=== PATIENT | female | born 1955 ===

== ENCOUNTER 2017-03-17 08:53 | Emergency (ER) | payer BC, OTHER ==
[2017-03-17] MEDS ORDERED: Lidocaine 5% Patch TD STA (09:21)
--- NOTE | 2017-03-17 09:46 | ED PDOC ---
HPI: Back Time Seen by Provider: 03/17/17 09:08 Chief Complaint (Nursing): Back Pain Chief Complaint (Provider): Back and Right Leg Pain History Per: Patient History/Exam Limitations: no limitations Onset/Duration Of Symptoms: Days (x 1 year) Current Symptoms Are (Timing): Still Present Additional Complaint(s): Stephanie is a 61 y/o female who presents to the ED complaining of lower back pain that radiates to the right leg, ongoing for the past year. Denies any associated numbness, tingles, urinary incontinence, dysuria, abdominal pain, nausea, vomiting, diarrhea, or headache. She denies suffering a new fall or injury. Taking Ibuprofen without relief of pain. No constipation. Ambulated with the pain. PMD: Unknown Past Medical History Reviewed: Historical Data, Nursing Documentation, Vital Signs - Medical History PMH: Back Problems, Chronic Pain (back) - Surgical History Surgical History: No Surg Hx - Family History Family History: States: Unknown Family Hx - Social History Current smoker - smoking cessation education provided: No Alcohol: None Drugs: Denies - Home Medications Home Medications: Ambulatory Orders Medication Instructions Recorded Ibuprofen [Motrin] 600 mg PO TID 7 Days 03/17/17 Lidocaine 5% [Lidoderm] 1 ea TD DAILY PRN 5 Days 03/17/17 - Allergies Allergies/Adverse Reactions: Allergies Allergy/AdvReac Type Severity Reaction Status Date / Time No Known Allergies Allergy Verified 03/17/17 09:07 Review of Systems Constitutional: Negative for: Other (fall or injury) Cardiovascular: Negative for: Chest Pain Respiratory: Negative for: Shortness of Breath Gastrointestinal: Negative for: Nausea, Vomiting, Abdominal Pain, Diarrhea Genitourinary Female: Negative for: Dysuria, Frequency, Incontinence Musculoskeletal: Positive for: Back Pain (lower) Skin: Negative for: Rash Neurological: Negative for: Weakness, Numbness, Headache Physical Exam - Reviewed Nursing Documentation Reviewed: Yes Vital Signs Reviewed: Yes - Physical Exam Appears: Positive for: Non-toxic, No Acute Distress Head Exam: Positive for: ATRAUMATIC, NORMAL INSPECTION, NORMOCEPHALIC Skin: Positive for: Normal Color, Warm, Dry Neck: Positive for: Normal, Painless ROM, Supple Cardiovascular/Chest: Positive for: Regular Rate, Rhythm. Negative for: Murmur Respiratory: Positive for: Normal Breath Sounds. Negative for: Accessory Muscle Use, Respiratory Distress Gastrointestinal/Abdominal: Positive for: Normal Exam, Soft. Negative for: Tenderness Back: Positive for: Other (mild tender r lower back lateral). Negative for: L CVA Tenderness, R CVA Tenderness Extremity: Positive for: Normal ROM, Other (Right leg, straight leg test positive at 33 degrees). Negative for: Tenderness, Pedal Edema Neurologic/Psych: Positive for: Alert, Oriented - Progress ED Course And Treament: 1052: Stable. AAOx3. Fu with pcp. Chronic pain. Ambulated. Medical Decision Making Medical Decision Making: Time: 09:21 Initial Impression: Chronic right leg pain Initial Plan: --EKG --Lidocaine 5% --Cyclobenzaprine 5 mg PO --Ibuprofen 600 mg PO --Tylenol 975 mg PO --Pending reevaluation Scribe Attestation: Documented by Yazmin Marrero, acting as a scribe for Matt Corea MD Provider Scribe Attestation: All medical record entries made by the Scribe were at my direction and personally dictated by me. I have reviewed the chart and agree that the record accurately reflects my personal performance of the history, physical exam, medical decision making, and the department course for this patient. I have also personally directed, reviewed, and agree with the discharge instructions and disposition. Disposition - Clinical Impression Clinical Impression: Chronic back pain - Patient ED Disposition Is Patient to be Admitted: No Counseled Patient/Family Regarding: Studies Performed, Diagnosis, Need For Followup, Rx Given - Disposition Referrals: [facility] [Outside] - 03/18/17 Disposition: Routine/Home Disposition Time: 10:52 Condition: STABLE Additional Instructions: Return if not better in 3 days. Prescriptions: Ibuprofen [Motrin] 600 mg PO TID 7 Days Lidocaine 5% [Lidoderm] 1 ea TD DAILY PRN 5 Days PRN Reason: Pain, Moderate (4-7) Instructions: Back Pain (ED)
[2017-03-17 11:15] VITALS: BP 129/75; PULSE 81; RESP 16; TEMP 98.2; O2SAT 100
--- NOTE | 2017-03-18 07:39 | CARD ---
APPROVED REPORT EKG Measurement Heart [id number] <Conclusion> Normal sinus rhythm Normal ECG
== END 2017-03-17 11:19 | disposition home or self-care (01) ==
LOC: H.ER 08:53
DX: M54.9 Dorsalgia, unspecified (principal); G89.29 Other chronic pain